=== PATIENT | male | born 1940 | race Caucasian/White ===

== ENCOUNTER 2018-12-06 11:38 | Emergency (ER) | payer BC, MEDICARE ==
--- NOTE | 2018-12-06 14:03 | REP ---
Chest one-view HISTORY: Hypoxia Comparison: 10/27/2015 There is elevation of the right hemidiaphragm. Patchy density is present in the left lower lobe consistent with atelectasis or infiltrate. Linear density is present in the right lower lobe consistent with atelectasis or scar. A small left pleural effusion is present. The heart is normal in size. The pulmonary vasculature is normal in appearance. Impression: 1. Left lower lobe atelectasis or infiltrate. 2. Right lower lobe atelectasis or scar. 3. Small left pleural effusion. Electronically Signed by Ashvin De La Cruz MD 12/06/2018 01:54 P
[2018-12-06] MEDS ORDERED: MAGN400T2 PO (14:04)
[2018-12-06] MEDS ORDERED: ATOR40TA75 PO (14:04)
[2018-12-06] MEDS ORDERED: SENN8.6T58 PO (14:04)
[2018-12-06] MEDS ORDERED: ECOT81TA5 PO (14:04)
[2018-12-06] MEDS ORDERED: KEPP1TAB PO (14:04)
[2018-12-06] MEDS ORDERED: [UNRECOGNIZED DRUG - CODE] PO (14:04)
[2018-12-06] MEDS ORDERED: SOTA120T PO (14:04)
[2018-12-06] MEDS ORDERED: GABA-845 PO (14:04)
[2018-12-06] MEDS ORDERED: NITR4TASL SL (14:04)
[2018-12-06] MEDS ORDERED: CRAN450T4 PO (14:04)
[2018-12-06] MEDS ORDERED: D3400CAP PO (14:04)
[2018-12-06] MEDS ORDERED: MIRA3350 PO (14:04)
[2018-12-06] MEDS ORDERED: VITA100T90 PO (14:04)
[2018-12-06] MEDS ORDERED: CYMB1CAP5 PO (14:04)
[2018-12-06] MEDS ORDERED: CVS5CHW2 PO (14:04)
[2018-12-06] MEDS ORDERED: LIDOCAINE 2% 5ML JELLY UROJET TOP ONE (15:15)
[2018-12-06] MEDS ORDERED: ZITH250T PO (15:19)
[2018-12-06 16:36] LABS: BASO # 0.1 10^3/uL (0.0-0.2); BASO % 0.7 % (0.0-1.0); EOS # 0.1 10^3/uL (0.0-0.50); EOS % 1.6 % (0.0-3.0); HEMATOCRIT 45.6 % (42.0-52.0); HEMOGLOBIN 14.1 g/dl (13.5-17.5); LYMPH # 1.3 10^3/uL (1.5-4.5); LYMPH % 16.2 % (24.0-44.0); MEAN CORPUSCULAR HEMOGLOBIN 30.7 pg (27.0-33.0); MEAN CORPUSCULAR HGB CONC 30.9 g/dl (32.0-36.5); MEAN CORPUSCULAR VOLUME 99.1 fl (80.0-96.0); MONO # 0.8 10^3/uL (0.0-0.8); MONO % 9.8 % (0.0-5.0); NEUTROPHILS # 5.8 10^3/uL (1.8-7.7); NEUTROPHILS % 71.3 % (36.0-66.0); PLATELET COUNT, AUTOMATED 204 10^3/uL (150-450); WHITE BLOOD COUNT 8.2 10^3/uL (4.0-10.0)
[2018-12-06 16:53] LABS: BLOOD UREA NITROGEN 28 MG/DL (7-18); CALCIUM LEVEL 8.6 MG/DL (8.8-10.2); CARBON DIOXIDE LEVEL 27 MEQ/L (21-32); CHLORIDE LEVEL 107 MEQ/L (98-107); CREATININE FOR GFR 0.84 MG/DL (0.70-1.30); GLOMERULAR FILTRATION RATE > 60.0 (>42); GLUCOSE, FASTING 78 MG/DL (70-100); POTASSIUM SERUM 5.2 MEQ/L (3.5-5.1); SODIUM LEVEL 140 MEQ/L (136-145)
[2018-12-06] MEDS ORDERED: AZITHROMYCIN 250 MG TAB PO ONE (17:15)
[2018-12-06 17:49] VITALS: BP 154/59
== END 2018-12-06 17:52 | disposition home or self-care (01) ==
LOC: M ED 11:38
DX: R33.9 Retention of urine, unspecified (principal); J18.9 Pneumonia, unspecified organism; I10 Essential (primary) hypertension; R91.8 Other nonspecific abnormal finding of lung field; Z86.73 Personal history of transient ischemic attack (TIA), and cerebral infarction without residual deficits; E78.5 Hyperlipidemia, unspecified; R56.9 Unspecified convulsions; Z87.440 Personal history of urinary (tract) infections; Z95.5 Presence of coronary angioplasty implant and graft; Z85.46 Personal history of malignant neoplasm of prostate; Z79.82 Long term (current) use of aspirin; Z79.899 Other long term (current) drug therapy; Z88.1 Allergy status to other antibiotic agents; Z88.0 Allergy status to penicillin; Z88.5 Allergy status to narcotic agent; Z88.8 Allergy status to other drugs, medicaments and biological substances